=== PATIENT | male | born 1995 | race African-American/Black ===

== ENCOUNTER 2024-02-15 11:21 | Emergency (ER) | payer BC, MEDICAID ==
[~2024-02-15] VITALS: Ht 170.2 cm; Wt 64.0 kg
[2024-02-15 11:29] VITALS: O2SAT 100
[2024-02-15] MEDS: HYDROCODONE/ACETAMINOPHEN 5/325MG TABLET PO ONE (12:34)
[2024-02-15] MEDS: ONDANSETRON 4MG ODT PO ONE (12:34)
[2024-02-15 12:39] LABS: HEMATOCRIT. 39.1 % (42.0-52.0); MEAN CORPUSCULAR HGB CONC 33.3 g/dL (31.0-37.0); MEAN CORPUSCULAR VOLUME 83.9 fL (80.0-94.0); MEAN PLATELET VOLUME 7.4 fl (7.4-10.4); PLATELET 264 x1000/uL (130-400); RED BLOOD CELL COUNT 4.66 mill/uL (4.7-6.1); RED CELL DISTRIBUTION WIDTH 12.4 % (11.6-14.6); WHITE BLOOD COUNT 15.3 x1000/uL (4.5-11.0)
[2024-02-15 12:46] LABS: DIFFERENTIAL COMMENT 1
[2024-02-15 12:54] LABS: CARBON DIOXIDE 28 mEq/L (21-32); CHLORIDE 106 mEq/L (98-107); POTASSIUM 3.8 mEq/L (3.5-5.1); SODIUM 140 mEq/L (136-145)
[2024-02-15 12:55] LABS: CALCIUM 9.5 mg/dL (8.7-10.4)
[2024-02-15 12:59] LABS: CREATININE 0.9 mg/dL (0.6-1.3); GLUCOSE 97 mg/dL (70-105)
[2024-02-15 13:00] LABS: UREA NITROGEN BLOOD 13 mg/dL (9-23)
[2024-02-15 13:02] LABS: ALANINE AMINOTRANSFERASE 17 IU/L (10-49); ALBUMIN 4.6 g/dL (3.2-4.8); ASPARTATE AMINOTRANSFERASE 28 IU/L (<34); BILIRUBIN TOTAL 1.1 mg/dL (0.1-1.0); PROTEIN TOTAL 7.7 g/dL (6.0-8.3)
[2024-02-15 13:14] LABS: PLATELET ESTIMATE NORMAL
[2024-02-15] MEDS ORDERED: DOXY-456 MT (13:56)
[2024-02-15] MEDS ORDERED: ONDA4TAB11 PO (13:56)
[2024-02-15] MEDS ORDERED: IBUP-2028 MT (13:59)
[2024-02-15] MEDS: LIDOCAINE HCL 1% 20ML VIAL (Pyxis) INJ INFIL ONE (15:03)
[2024-02-15 15:10] VITALS: BP 110/64; PULSE 80; RESP 14; TEMP 97.9
== END 2024-02-15 15:13 | disposition home or self-care (01) ==
LOC: ER 11:21
DX: L02.31 Cutaneous abscess of buttock (principal); R11.0 Nausea; Z90.49 Acquired absence of other specified parts of digestive tract
CPT/HCPCS: 80053; 85025; 36415; 10060; 99283; Q0162; J3490; Z7610

== ENCOUNTER 2024-02-17 12:54 | Emergency (ER) | payer MEDICAID ==
[~2024-02-17] VITALS: Ht 172.7 cm; Wt 66.0 kg
[~2024-02-17 12:54] MED LIST: DOXY-456 MT; IBUP-2028 MT; ONDA4TAB11 PO
[2024-02-17 13:10] VITALS: O2SAT 100
[2024-02-17 15:03] VITALS: BP 125/58; PULSE 67; RESP 18; TEMP 98
== END 2024-02-17 16:44 | disposition home or self-care (01) ==
LOC: ER 14:07
DX: Z48.00 Encounter for change or removal of nonsurgical wound dressing (principal); Z88.2 Allergy status to sulfonamides; Z90.49 Acquired absence of other specified parts of digestive tract
CPT/HCPCS: 99281